=== PATIENT | female | born 1980 | race Native Hawaiian/Other Pacific Islander ===

== ENCOUNTER 2019-11-14 12:06 | Outpatient (CLI) | payer BC ==
[~2019-11-14 12:06] MED LIST: BUT/APAP/CA1 PO; CEFD300C2 PO; FLUT0.05 NAS; LORA10TA3 PO; ZOFRAN8 MG PO
== END 2019-11-14 19:38 | disposition home or self-care (01) ==
LOC: LABW 12:06
DX: R50.9 Fever, unspecified (principal); R52 Pain, unspecified
CPT/HCPCS: 87502

== ENCOUNTER 2021-05-21 08:48 | Outpatient (CLI) | payer OTHER | END 2021-05-21 21:18 | disposition home or self-care (01) | LOC: LABW 08:48 | PROVIDERS: ATTEND Physician Assistant | DX: Z76.89 Persons encountering health services in other specified circumstances (principal) | CPT/HCPCS: 36415; 86787; 86803 ==